=== PATIENT | female | born 1955 | race Caucasian/White ===

== ENCOUNTER → 2017-02-08 | Outpatient (CLI) | payer BC ==
[~2017-02-08] MED LIST: ACID CONTROL150 M1 PO; DESYREL100 MG PO; GABAPENTIN300 MG PO; IRON18 MG PO
--- NOTE | ~2017-02-08 | MY11 ---
[facility] A Service [facility] RADIOLOGY TEXT RESULTS PATIENT: SOFIA TAYLOR LOCATION: [facility] : 57 UNIT #: [id number] AGE: [address]: Brandon Vargas MD SEX: F ORDER DR: [id number] [facility] [address] [place], [place] [address] [id number] O MR#: [id number] Acc #: [id number] NAME: SOFIA TAYLOR : 1955 SEX: F STUDY DATE/TIME: 02/08/2017 9:25 UNIT: [facility] ROOM: STUDY DESCRIPTION: MY Mammogram Screening Dig Parrish Attending Physician: Brandon Vargas M.D. Ordering Physician: Brandon Vargas M.D. Primary Care Physician: Brandon Vargas M.D. MEDICAL IMAGING REPORT This report is preliminary unless electronic signature is present EXAM Digital screening mammogram, 02/08/2017, [facility]. HISTORY 62-year-old woman, no risk elevation. Annual screening. COMPARISON None. Previous mammogram [facility] in [place], [place]. FINDINGS Digital imaging of each breast was completed utilizing a two-view examination of each breast in craniocaudal and mediolateral-oblique projections. Review and interpretation of digital mammograms include a second review in conjunction with FDA-approved CAD device. There is a normal parenchymal presentation bilaterally consistent with the patient's age. There are no breast masses imaged and no parenchymal asymmetry is visualized. There are no suspicious microcalcifications and I see no focal architectural disturbance. IMPRESSION Negative screening digital mammogram. One-year followup recommended. Patients over the age of 40 are entered into a reminder system with target due date for the next mammogram. A result letter will also be sent to the patient. BIRADS: 1 Negative Dictated by... Jomar Alonso M.D. THIS IS AN ELECTRONICALLY VERIFIED REPORT [facility] A Service [facility] RADIOLOGY TEXT RESULTS PATIENT: SOFIA TAYLOR LOCATION: [facility] : 57 UNIT #: [id number] AGE: [address]: Brandon Vargas MD SEX: F ORDER DR: Jomar Alonso M.D. at 02/08/2017 2:43 PM JULISA/jessica TD: 02/08/2017 14:15 JOB #: [id number] MEDICAL IMAGING REPORT Page 1 of 1 COPY
== END | disposition home or self-care (01) ==
LOC: CWCC 09:06
DX: Z12.31 Encounter for screening mammogram for malignant neoplasm of breast (principal)
CPT/HCPCS: G0202

== ENCOUNTER 2017-05-02 09:55 | Emergency (ER) | payer BC ==
--- NOTE | ~2017-05-02 | CT2 ---
[facility] A Service of [facility] RADIOLOGY TEXT RESULTS PATIENT: SOFIA KOHLI LOCATION: SED : 57 UNIT #: [id number] AGE: [address]: Dinesh Alvarado MD SEX: F ORDER DR: [id number] [place] [address] [id number] E MR#: [id number] Acc #: [id number] NAME: SOFIA KOHLI : 1955 SEX: F STUDY DATE/TIME: 05/02/2017 12:24 UNIT: SED ROOM: STUDY DESCRIPTION: CT Abd and Pelv W Cont Attending Physician: Dinesh Alvarado M.D. Ordering Physician: Dinesh Alvarado M.D. Primary Care Physician: Brandon Vargas M.D. MEDICAL IMAGING REPORT This report is preliminary unless electronic signature is present. EXAM CT abdomen and pelvis with contrast. INDICATION Nausea, vomiting, and diarrhea since yesterday. PROCEDURE Contrast-enhanced CT of the abdomen and pelvis. This CT exam was performed with one or more of the following radiation dose reduction techniques: automatic exposure control, adjustment of mA and/or kV according to patient size, and iterative reconstruction. COMPARISON None FINDINGS ABDOMEN WITH CONTRAST: Included lung bases clear. Liver, spleen, kidneys, adrenal glands, pancreas unremarkable. Previous cholecystectomy. Postsurgical change of the stomach. The stomach is nondilated. Small bowel loops are nondilated. Appendix is normal. There is a 3.1 cm fat-containing hernia midline supraumbilical region. No abdominal fluid collection. PELVIS WITH CONTRAST: Previous hysterectomy. No pelvic mass or fluid. No aggressive appearing bone lesion. IMPRESSION No clearly acute finding in the abdomen or pelvis. No evidence for obstruction. Stomach and bowel loops are nondilated. [facility] A Service of [facility] RADIOLOGY TEXT RESULTS PATIENT: SOFIA KOHLI LOCATION: SED : 57 UNIT #: [id number] AGE: [address]: Dinesh Alvarado MD SEX: F ORDER DR: Dictated by... Raymond E. Melyssa, M.D. THIS IS AN ELECTRONICALLY VERIFIED REPORT Raymond Ragsdale M.D. at 05/05/2017 1:56 PM KAYLAHD/eunice TD: 05/02/2017 14:40 JOB #: [id number] MEDICAL IMAGING REPORT Page 1 of 1
[2017-05-02] MEDS ORDERED: ACID CONTROL150 M1 PO (10:08)
[2017-05-02] MEDS ORDERED: IRON18 MG PO (10:08)
[2017-05-02] MEDS ORDERED: DESYREL100 MG PO (10:08)
[2017-05-02 10:52] LABS: BASOPHIL% 0.2 % (0-2.5); HEMATOCRIT 38.9 % (35.0-45.0); HEMOGLOBIN 12.9 gm/dL (12.0-16.0); LYMPHOCYTE# 0.4 X10e3 (1.0-3.5); LYMPHOCYTE% 2.2 % (17.0-45.0); MEAN CELL VOLUME 91.3 FL (83-96); MEAN CORPUSCULAR HEMOGLOBIN 30.2 PG (28-34); MEAN CORPUSCULAR HGB CONC 33.1 g/dL (30-36); MEAN PLATELET VOLUME 10.1 FL (6.5-11.5); MONOCYTE# 1.1 X10e3 (0-1.0); MONOCYTE% 6.9 % (3.0-12.0); NEUTROPHIL# 14.6 X10e3 (1.5-7.1); NEUTROPHIL% 90.7 % (40-75); PLATELET COUNT 156 X10e3 (140-420); RED BLOOD COUNT 4.26 X10e (3.90-5.30); RED CELL DISTRIBUTION WIDTH 16.9 % (11.0-15.5); WHITE BLOOD COUNT 16.1 X10e3 (4.0-10.5)
[2017-05-02 11:00] LABS: DIFF IND NO
[2017-05-02 11:42] LABS: ALBUMIN SERUM 4.3 g/dL (3.5-5.0); BILIRUBIN, DIRECT 0.1 mg/dL (0.0-0.2); BILIRUBIN,INDIRECT 1.1 mg/dL (0.0-0.9); BILIRUBIN,TOTAL 1.2 mg/dL (0.2-2.0); BUN/CREATININE RATIO 16.25; CREATININE SERUM 0.8 mg/dL (0.6-1.4); GLOM FILT RATE Estimated 79.6 mL/min (>60); PROTEIN TOTAL SERUM 7.8 g/dL (6.0-8.3)
[2017-05-02 11:43] LABS: CALCIUM SERUM 8.7 mg/dL (8.4-10.2); POTASSIUM 3.4 mmol/L (3.5-5.1)
[2017-05-02 13:56] LABS: URINE SOURCE CLEAN CATCH
[2017-05-02 13:59] LABS: URINE APPEARANCE CLEAR; URINE BILIRUBIN NEG (NEG); URINE BLOOD NEG (NEG); URINE COLOR YELLOW; URINE GLUCOSE NEG (NORM); URINE KETONE NEG (NEG); URINE LEUKOCYTE ESTERASE NEG (NEG); URINE NITRATE NEG (NEG); URINE PROTEIN NEG (NEG); URINE SPECIFIC GRAVITY <=1.005 (1.003-1.035); URINE UROBILINOGEN 0.2 MG/DL (NORM)
[2017-05-02 14:06] LABS: MICRO INDICATED? NO
== END 2017-05-02 14:27 | disposition home or self-care (01) ==
LOC: SED 09:55
PROVIDERS: Emergency Medicine
DX: A08.4 Viral intestinal infection, unspecified (principal); E11.9 Type 2 diabetes mellitus without complications; Z90.49 Acquired absence of other specified parts of digestive tract; Z90.710 Acquired absence of both cervix and uterus; Z95.1 Presence of aortocoronary bypass graft; Z79.899 Other long term (current) drug therapy
CPT/HCPCS: 36415; 74177; 80048; 80076; 81003; 83690; 85025; 96361; 96374; 96375; 96376; 99284; J2405; Q9967

== ENCOUNTER 2017-05-04 13:31 | Emergency (ER) | payer BC ==
--- NOTE | ~2017-05-04 | CT71 ---
[facility] A Service of [facility] RADIOLOGY TEXT RESULTS PATIENT: SOFIA KOHLI LOCATION: SED : 57 UNIT #: [id number] AGE: [address]: Oscar Araujo MD SEX: F ORDER DR: [id number] [place] [id number] E MR#: [id number] Acc #: [id number] NAME: SOFIA KOHLI : 1955 SEX: F STUDY DATE/TIME: 05/04/2017 14:18 UNIT: SED ROOM: STUDY DESCRIPTION: CT Head Wo Contrast Attending Physician: Oscar Araujo M.D. Ordering Physician: Oscar Araujo M.D. Primary Care Physician: Brandon Vargas M.D. MEDICAL IMAGING REPORT This report is preliminary unless electronic signature is present. EXAM CT head INDICATION Headache. Facial swelling. TECHNIQUE CT of the head without contrast. This CT exam was performed with one or more of the following radiation dose reduction techniques: automatic exposure control, adjustment of mA and/or kV according to patient size, and iterative reconstruction. COMPARISON None available. FINDINGS Axial noncontrast images were obtained from the skull base to the vertex. Ventricular size and configuration are normal. There is no evidence of acute infarct or hemorrhage. There are no extraaxial fluid collections. No mass lesion or mass effect is seen. There are no skull fractures. IMPRESSION Normal noncontrast head CT. Dictated by... Juan Jose Doe M.D. THIS IS AN ELECTRONICALLY VERIFIED REPORT Juan Jose Doe M.D. at 05/04/2017 3:23 PM KYLEE/brooks [facility] A Service [facility] RADIOLOGY TEXT RESULTS PATIENT: SOFIA KOHLI LOCATION: SED : 57 UNIT #: [id number] AGE: [address]: Oscar Araujo MD SEX: F ORDER DR: TD: 05/04/2017 15:15 JOB #: [id number] MEDICAL IMAGING REPORT Page 1 of 1
[~2017-05-04 13:31] MED LIST changes: -GABAPENTIN300 MG PO
[2017-05-04] MEDS ORDERED: GABAPENTIN300 MG PO (13:35)
[2017-05-04 14:58] LABS: BASOPHIL% 0.3 % (0-2.5); EOSINOPHIL# 0.2 X10e3 (0-0.7); EOSINOPHIL% 2.5 % (0.0-7.0); HEMATOCRIT 34.4 % (35.0-45.0); HEMOGLOBIN 11.5 gm/dL (12.0-16.0); LYMPHOCYTE# 0.6 X10e3 (1.0-3.5); LYMPHOCYTE% 8.9 % (17.0-45.0); MEAN CELL VOLUME 90.8 FL (83-96); MEAN CORPUSCULAR HEMOGLOBIN 30.4 PG (28-34); MEAN CORPUSCULAR HGB CONC 33.5 g/dL (30-36); MEAN PLATELET VOLUME 9.7 FL (6.5-11.5); MONOCYTE# 0.7 X10e3 (0-1.0); MONOCYTE% 9.8 % (3.0-12.0); NEUTROPHIL# 5.4 X10e3 (1.5-7.1); NEUTROPHIL% 78.5 % (40-75); PLATELET COUNT 127 X10e3 (140-420); RED BLOOD COUNT 3.79 X10e (3.90-5.30); RED CELL DISTRIBUTION WIDTH 16.5 % (11.0-15.5); WHITE BLOOD COUNT 6.8 X10e3 (4.0-10.5)
[2017-05-04 15:10] LABS: DIFF IND NO
[2017-05-04 15:22] LABS: CALCIUM SERUM 8.3 mg/dL (8.4-10.2); CREATININE SERUM 0.8 mg/dL (0.6-1.4); GLOM FILT RATE Estimated 79.6 mL/min (>60)
== END 2017-05-04 16:30 | disposition home or self-care (01) ==
LOC: SED 13:31
PROVIDERS: Emergency Medicine
DX: R51 Headache (principal); E87.6 Hypokalemia; T78.40XA Allergy, unspecified, initial encounter; Z90.89 Acquired absence of other organs; Z79.899 Other long term (current) drug therapy
CPT/HCPCS: 36415; 70450; 80048; 85025; 96361; 96374; 96375; 99284; J1200; J1885; J2930